=== PATIENT | female | born 1990 | race Caucasian/White ===

== ENCOUNTER 2024-07-31 09:45 | Emergency (ER) | payer MEDICAID ==
[2024-07-31 10:45] LABS: APPEARANCE,URINE SLT CLOUDY; BILIRUBIN,URINE NEGATIVE (NEGATIVE); COLOR,URINE YELLOW; GLUCOSE,URINE NEGATIVE (NEGATIVE); KETONES,URINE NEGATIVE (NEGATIVE); LEUKOCYTE ESTERASE,URINE NEGATIVE (NEGATIVE); NITRITE,URINE NEGATIVE (NEGATIVE); OCCULT BLOOD,URINE NEGATIVE (NEGATIVE); PROTEIN,URINE 30 mg/dL (NEGATIVE); UROBILINOGEN,URINE 0.2 EU/dL (<2.0)
[2024-07-31 10:55] LABS: EPITHELIAL CELLS,URINE MODERATE (NONE-FEW); RBC,URINE 0-2 (0-2/HPF); WBC,URINE 0-3 (0-5/HPF)
[2024-07-31 10:56] LABS: BACTERIA,URINE FEW (NEGATIVE)
== END 2024-07-31 11:00 | disposition left against medical advice (07) ==
LOC: MW.ED 09:45
DX: K04.7 Periapical abscess without sinus (principal); R10.32 Left lower quadrant pain; Z79.899 Other long term (current) drug therapy; Z75.3 Unavailability and inaccessibility of health-care facilities
CPT/HCPCS: 81001; 99283; 99284

== ENCOUNTER 2024-07-31 21:02 | Emergency (ER) | payer MEDICAID ==
[2024-07-31] MEDS: Acetaminophen/HYDROcodone 325-5 MG Tab PO ONE (23:06)
[2024-07-31 23:09] LABS: BASOPHILS ABSOLUTE AUTO 0.01 K/uL (0.00-0.20); BASOPHILS PERCENT AUTO 0.2 % (0.0-1.0); EOSINOPHILS ABSOLUTE AUTO 0.01 K/uL (0.00-0.45); EOSINOPHILS PERCENT AUTO 0.2 % (0.0-6.0); HEMATOCRIT 35.6 % (37.0-47.0); HEMOGLOBIN 12.4 g/dL (12.0-16.0); LYMPHOCYTES ABSOLUTE AUTO 2.18 K/uL (1.00-4.80); LYMPHOCYTES PERCENT AUTO 44.1 % (24.0-44.0); MEAN CORPUSCULAR HEMOGLOBIN 32.1 pg (28.0-32.0); MEAN CORPUSCULAR HGB CONC 34.8 g/dL (32.0-36.0); MEAN CORPUSCULAR VOLUME 92.2 fL (83.0-99.0); MEAN PLATELET VOLUME 9.8 fL (9.4-12.3); MONOCYTES ABSOLUTE AUTO 0.71 K/uL (0.00-0.80); MONOCYTES PERCENT AUTO 14.4 % (0.0-8.0); NEUTROPHILS ABSOLUTE AUTO 2.03 K/uL (1.80-7.70); NEUTROPHILS PERCENT AUTO 41.1 % (41.0-71.0); PLATELET COUNT,PLT 229 K/uL (150-400); RED BLOOD CELL COUNT 3.86 M/uL (4.10-5.30); WHITE BLOOD CELL COUNT,WBC 4.94 K/uL (3.9-11.3)
[2024-07-31] MEDS: Iopamidol 755 MG/ML 500 ML Multipack Bottle IVPUSH ONE (23:21)
[2024-07-31 23:32] LABS: A/G RATIO 1.2 (0.9-1.6); ALBUMIN 3.7 g/dL (3.4-5.0); BILIRUBIN TOTAL 0.2 mg/dL (0.2-1.0); CALCIUM 9.5 mg/dL (8.5-10.1); CARBON DIOXIDE,CO2 29.9 mmol/L (21.0-32.0); CREATININE 0.9 mg/dL (0.6-1.0); EST CRCL DRUG DOSING (CG) 88.01 mL/min; POTASSIUM,K 4.7 mmol/L (3.5-5.1); PROTEIN TOTAL,TP 6.9 g/dL (6.4-8.2)
== END 2024-08-01 02:24 | disposition home or self-care (01) ==
LOC: MW.ED 21:02
DX: K59.00 Constipation, unspecified (principal)
CPT/HCPCS: 36415; 74177; 80053; 85025; 99284; A9270; Q9967; 99283

== ENCOUNTER 2025-01-27 16:10 | Emergency (ER) | payer MEDICAID | END 2025-01-27 18:09 | LOC: MW.ED 16:10 | DX: Z02.89 Encounter for other administrative examinations (principal) | CPT/HCPCS: 36415; 99282; 99283 ==